=== PATIENT | male | born 1995 | race Hispanic/Latino ===

== ENCOUNTER 2019-11-21 01:33 | Emergency (ER) | payer BC ==
--- NOTE | 2019-11-21 02:31 | ER ---
Nurse's Notes [facility] Name: Compa Cartwright Jr Age: 23 yrs Sex: Male : 1995 Arrival Date: 11/21/2019 Time: 01:37 Bed 5 Private MD: Diagnosis: Hemorrhoids Presentation: 11/20 01:51 Chief complaint: Patient states: reports blood in stool, states having bright red blood sg x1 today, denies prior history of having blood in stool, pt denies N/V/D/Fever at this time. Coronavirus screen: Client denies travel out of the [place] in the last 14 days. At this time, the client does not indicate any symptoms associated with coronavirus-19. Ebola Screen: Patient negative for fever greater than or equal to 101.5 degrees Fahrenheit, and additional compatible Ebola Virus Disease symptoms Patient denies exposure to infectious person. Patient denies travel to an Ebola-affected area in the 21 days before illness onset. No symptoms or risks identified at this time. Risk Assessment: Do you want to hurt yourself or someone else? Patient reports no desire to harm self or others. Onset of symptoms was November 21, 2019. Care prior to arrival: None. Transition of care: patient was not received from another setting of care. 01:51 Method Of Arrival: Ambulatory sg 01:51 Acuity: EFRA 3 sg 02:30 Initial Sepsis Screen: Does the patient meet any 2 criteria? No. Patient's initial lp1 sepsis screen is negative. Does the patient have a suspected source of infection? No. Patient's initial sepsis screen is negative. Historical: - Allergies: 01:53 No Known Allergies; sg - Home Meds: 01:53 None [Active]; sg - PMHx: 01:53 None; sg - PSHx: 01:53 None; sg - Immunization history:: Adult Immunizations up to date. - Social history:: Smoking status: Patient denies any tobacco usage or history of. Screenin:30 Abuse screen: Denies threats or abuse. Denies injuries from another. Nutritional lp1 screening: No deficits noted. Tuberculosis screening: No symptoms or risk factors identified. Fall Risk None identified. Assessment: 02:00 General: Appears in no apparent distress. Behavior is calm, cooperative, appropriate lp1 for age. Pain: Denies pain. Neuro: Level of Consciousness is awake, alert, obeys commands, Oriented to person, place, time, situation. Cardiovascular: Patient's skin is warm and dry. Respiratory: Respiratory effort is even, unlabored. GI: Abdomen is non-distended, Reports bloody stool, States blood when wiping x1 episode. : No signs and/or symptoms were reported regarding the genitourinary system. EENT: No signs and/or symptoms were reported regarding the EENT system. Derm: Skin is pink, warm \T\ dry. Musculoskeletal: No deficits noted. Vital Signs: 01:51 BP 132 / 77; Pulse 87; Resp 17; Temp 98.2; Pulse Ox 100% on R/A; Weight 115.67 kg; sg Height 6 ft. 1 in. (185.42 cm); Pain 0/10; 01:51 Body Mass Index 33.64 (115.67 kg, 185.42 cm) ED Course: 01:37 Patient arrived in ED. am2 01:51 Tanner Khalil MD is Attending Physician. [facility] 01:53 Triage completed. sg 01:53 Arm band placed on. sg 02:00 Patient has correct armband on for positive identification. lp1 02:26 Nancy Lynch, RN is Primary Nurse. lp1 02:30 Monico Herrmann MD is Referral Physician. mh7 02:30 Addison Boyd MD is Referral Physician. 7 02:30 No provider procedures requiring assistance completed. Patient did not have IV access lp1 during this emergency room visit. Administered Medications: No medications were administered Outcome: 02:31 Discharge ordered by . 7 02:45 Discharged to home ambulatory. lp1 02:45 Condition: good 02:45 Discharge instructions given to patient, Instructed on discharge instructions, follow up and referral plans. medication usage, Demonstrated understanding of instructions, follow-up care, medications, Prescriptions given X 2. 02:49 Patient left the ED. Signatures: Ramsey Gifford RN RN Nancy Lynch, JAX RN 1 Judy Villanueva am2 Tanner Khalil MD MD [facility]
--- NOTE | 2019-11-21 02:31 | EDPHYS ---
Physician Documentation [facility] Name: Compa Cartwright Jr Age: 23 yrs Sex: Male : 1995 Arrival Date: 11/21/2019 Time: 01:37 Bed 5 Private MD: ED Physician Tanner Khalil HPI: 11/20 02:20 This 23 yrs old Male presents to ER via Ambulatory with complaints of Bloody mh7 Stools. 02:20 The patient presents to the emergency department with rectal bleeding, a small amount, mh7 on toilet paper. Onset: The symptoms/episode began/occurred last night. Abdominal pain: none is appreciated. Modifying factors: The symptoms are alleviated by nothing, the symptoms are aggravated by nothing. Associated signs and symptoms: Pertinent negatives: anorexia, chest pain, constipation, diarrhea, dizziness at rest, dizziness when standing, fever, shortness of breath, syncope, near-syncope, vomiting. Severity of symptoms: At their worst the symptoms were mild last night, in the emergency department the symptoms have resolved and did so earlier today. Patient reports having one episode of blood on toilet paper when he had a bowel movement around 2320. he denies any other complaints.. Historical: - Allergies: 01:53 No Known Allergies; sg - Home Meds: 01:53 None [Active]; sg - PMHx: 01:53 None; sg - PSHx: 01:53 None; sg - Immunization history:: Adult Immunizations up to date. - Social history:: Smoking status: Patient denies any tobacco usage or history of. ROS: 02:20 Constitutional: Negative for fever, chills, and weight loss, Eyes: Negative for injury, mh7 pain, redness, and discharge, ENT: Negative for injury, pain, and discharge, Neck: Negative for injury, pain, and swelling, Cardiovascular: Negative for chest pain, palpitations, and edema, Respiratory: Negative for shortness of breath, cough, wheezing, and pleuritic chest pain, Back: Negative for injury and pain, : Negative for injury, bleeding, discharge, and swelling, MS/Extremity: Negative for injury and deformity, Skin: Negative for injury, rash, and discoloration, Neuro: Negative for headache, weakness, numbness, tingling, and seizure, Psych: Negative for depression, anxiety, suicide ideation, homicidal ideation, and hallucinations, Allergy/Immunology: Negative for hives, rash, and allergies, Endocrine: Negative for neck swelling, polydipsia, polyuria, polyphagia, and marked weight changes, Hematologic/Lymphatic: Negative for swollen nodes, abnormal bleeding, and unusual bruising. Exam: 02:20 Constitutional: This is a well developed, well nourished patient who is awake, alert, mh7 and in no acute distress. Head/Face: Normocephalic, atraumatic. Eyes: Pupils equal round and reactive to light, extra-ocular motions intact. Lids and lashes normal. Conjunctiva and sclera are non-icteric and not injected. Cornea within normal limits. Periorbital areas with no swelling, redness, or edema. Neck: Trachea midline, no thyromegaly or masses palpated, and no cervical lymphadenopathy. Supple, full range of motion without nuchal rigidity, or vertebral point tenderness. No Meningismus. Chest/axilla: Normal chest wall appearance and motion. Nontender with no deformity. No lesions are appreciated. Cardiovascular: Regular rate and rhythm with a normal S1 and S2. No gallops, murmurs, or rubs. Normal PMI, no JVD. No pulse deficits. Respiratory: Lungs have equal breath sounds bilaterally, clear to auscultation and percussion. No rales, rhonchi or wheezes noted. No increased work of breathing, no retractions or nasal flaring. Back: No spinal tenderness. No costovertebral tenderness. Full range of motion. Skin: Warm, dry with normal turgor. Normal color with no rashes, no lesions, and no evidence of cellulitis. MS/ Extremity: Pulses equal, no cyanosis. Neurovascular intact. Full, normal range of motion. Neuro: Awake and alert, GCS 15, oriented to person, place, time, and situation. Cranial nerves II-XII grossly intact. Motor strength 5/5 in all extremities. Sensory grossly intact. Cerebellar exam normal. Normal gait. Psych: Awake, alert, with orientation to person, place and time. Behavior, mood, and affect are within normal limits. 02:20 Abdomen/GI: Inspection: abdomen appears normal, Bowel sounds: normal, in all quadrants, Palpation: abdomen is soft and non-tender, in all quadrants, Rectal exam: Prostate: normal, rectal tone normal, hemorrhoid(s), internal, without bleeding, without inflammation, without thrombosis, without pain, mass, is not appreciated, swelling, is not appreciated, tenderness, is not appreciated, fecal impaction, is not appreciated, the exam is chaperoned by an tv technician, Indicators: McBurney's point is not tender, Mclaughlin's sign is negative, Rovsing's sign is negative, Obturator sign is negative, Psoas sign is negative, Liver: no appreciated palpable abnormalities, Hernia: not appreciated. Vital Signs: 01:51 BP 132 / 77; Pulse 87; Resp 17; Temp 98.2; Pulse Ox 100% on R/A; Weight 115.67 kg; sg Height 6 ft. 1 in. (185.42 cm); Pain 0/10; 01:51 Body Mass Index 33.64 (115.67 kg, 185.42 cm) sg MDM: 02:17 [facility] 02[facility]28 Differential diagnosis: hemorrhoids, rectal bleeding. Data reviewed: vital signs, [facility]. Data interpreted: Pulse oximetry: on room air is 100 %. Interpretation: normal. Counseling: I had a detailed discussion with the patient and/or guardian regarding: the historical points, exam findings, and any diagnostic results supporting the discharge/admit diagnosis, the need for outpatient follow up, to return to the emergency department if symptoms worsen or persist or if there are any questions or concerns that arise at home. Administered Medications: No medications were administered Disposition: 11/21/19 02:31 Discharged to Home. Impression: Hemorrhoids. - Condition is Stable. - Discharge Instructions: Hemorrhoids, [id number]. - Prescriptions for Colace 100 mg Oral Tablet - take 1 tablet by ORAL route every 12 hours; 14 tablet. Anusol- HC 25 mg Rectal Suppository - insert 1 suppository by RECTAL route every 12 hours As needed; 10 suppository. - Medication Reconciliation Form, Thank You Letter, Antibiotic Education, Prescription Opioid Use form. - Follow up: Private Physician; When: 1 - 2 days; Reason: Worsening of condition, Recheck today's complaints, Continuance of care, Re-evaluation by your physician. Follow up: Monico Herrmann MD; When: 1 - 2 days; Reason: Worsening of condition, Recheck today's complaints. Follow up: Addison Boyd MD; When: 1 - 2 days; Reason: Worsening of condition, Recheck today's complaints. - Problem is new. - Symptoms have improved. Signatures: Ramsey Gifford RN RN sg Tanner Khalil MD MD mh7 Corrections: (The following items were deleted from the chart) 02:49 02:31 11/21/2019 02:31 Discharged to Home. Impression: Hemorrhoids. Condition is sg Stable. Forms are Medication Reconciliation Form, Thank You Letter, Antibiotic Education, Prescription Opioid Use. Follow up: Private Physician; When: 1 - 2 days; Reason: Worsening of condition, Recheck today's complaints, Continuance of care, Re-evaluation by your physician. Follow up: Monico Herrmann; When: 1 - 2 days; Reason: Worsening of condition, Recheck today's complaints. Follow up: Addison Boyd; When: 1 - 2 days; Reason: Worsening of condition, Recheck today's complaints. Problem is new. Symptoms have improved. mh7
[2019-11-21 02:54] VITALS: BP 132/77; TEMP 98.2; O2SAT 100
== END 2019-11-21 02:49 | disposition home or self-care (01) ==
LOC: ER 01:33
DX: K64.9 Unspecified hemorrhoids (principal)
CPT/HCPCS: 99282